=== PATIENT | female | born 1995 | race African-American/Black ===

== ENCOUNTER 2017-05-09 19:10 | Emergency (ER) | payer SELFPAY ==
[2017-05-09 19:19] VITALS: BP 126/67; PULSE 71; TEMP 98.3; BMI 40.3
[2017-05-09] MEDS ORDERED: AZITHROMYCIN 250 MG TABLET PO ONE (20:39)
[2017-05-09] MEDS ORDERED: IBUPROFEN 600 MG TABLET (FP) PO ONE ×2 (20:41→20:45)
--- NOTE | 2017-05-09 20:41 | PDOC ---
History of Present Illness - General History Source: Patient Exam Limitations: No Limitations - History of Present Illness Initial Comments: 05/09/17 20:41 The patient is a 21 year old female with history of asthma who presents to the ED complaining of one day of left ear pain that began last night. She states she woke up this morning and her outer left ear was swollen, now resolved. She also complains of pain extending to her left forehead. No headache or visual changes. No fever or chills. No urinary complaints. LMP April 10. <Manda Mcnamara - Last Filed: 05/09/17 20:41> <Nubia Mata - Last Filed: 05/09/17 20:55> - General Chief Complaint: Ear Problem Stated Complaint: EAR PROBLEM Time Seen by Provider: 05/09/17 20:21 Past History <Manda Mcnamara - Last Filed: 05/09/17 20:41> - Immunization History Immunization Up to Date: Yes - Suicide/Smoking/Psychosocial Hx Smoking History: Never smoked Have you smoked in the past 12 months: No Information on smoking cessation initiated: No Hx Alcohol Use: No Drug/Substance Use Hx: No Substance Use Type: None <Nubia Mata - Last Filed: 05/09/17 20:55> - Past Medical History Allergies/Adverse Reactions: Allergies Allergy/AdvReac Type Severity Reaction Status Date / Time shellfish derived Allergy Verified 05/09/17 19:16 Home Medications: Ambulatory Orders Albuterol Sulfate Inhaler - [Ventolin Hfa Inhaler -] 2 inh PO Q6H PRN 05/09/17 Azithromycin [Zithromax -] 250 mg PO DAILY #4 tablet 05/09/17 Review of Systems - Review of Systems Able to Perform ROS?: Yes Comments:: 05/09/17 20:44 GENERAL/CONSTITUTIONAL: No fever or chills. No weakness. HEAD, EYES, EARS, NOSE AND THROAT: +L ear pain, no discharge. +L outer ear swelling, resolved. No change in vision. No sore throat. CARDIOVASCULAR: No chest pain or shortness of breath. RESPIRATORY: No cough, wheezing, or hemoptysis. GASTROINTESTINAL: No nausea, vomiting, diarrhea or constipation. GENITOURINARY: No dysuria, frequency, or change in urination. MUSCULOSKELETAL: No joint or muscle swelling or pain. No neck or back pain. SKIN: No rash NEUROLOGIC: No headache, vertigo, loss of consciousness, or change in strength/ sensation. ENDOCRINE: No increased thirst. No abnormal weight change. HEMATOLOGIC/LYMPHATIC: No anemia, easy bleeding, or history of blood clots. ALLERGIC/IMMUNOLOGIC: No hives or skin allergy. <Manda Mcnamara - Last Filed: 05/09/17 20:41> *Physical Exam - Vital Signs Last Vital Signs Temp Pulse Resp BP Pulse Ox 98.3 F 71 18 126/67 98 05/09/17 19:15 05/09/17 19:15 05/09/17 19:15 05/09/17 19:15 05/09/17 19:15 - Physical Exam Comments: 05/09/17 20:45 GENERAL: Awake, alert, and fully oriented, in no acute distress HEAD: No signs of trauma EYES: PERRLA, EOMI, sclera anicteric, conjunctiva clear ENT: +L TM is opaque, pale, no erythema or discharge. Auricles normal inspection , hearing grossly normal, nares patent, oropharynx clear without exudates. Moist mucosa NECK: Normal ROM, supple, no lymphadenopathy, JVD, or masses EXTREMITIES: Normal range of motion, no edema. No clubbing or cyanosis. No cords, erythema. NEUROLOGICAL: Cranial nerves II through XII grossly intact. Normal speech, normal gait SKIN: Warm, Dry, normal turgor, no rashes or lesions noted. <Manda Mcnamara - Last Filed: 05/09/17 20:41> - Vital Signs Last Vital Signs Temp Pulse Resp BP Pulse Ox 98.3 F 71 18 126/67 98 05/09/17 19:15 05/09/17 19:15 05/09/17 19:15 05/09/17 19:15 05/09/17 19:15 <Nubia Mata - Last Filed: 05/09/17 20:55> Medical Decision Making - Medical Decision Making 05/09/17 20:55 Pt comes with left ear pain. She has an OM on exam. She will be treated with zpak. Follow with PMD. <Nubia Mata - Last Filed: 05/09/17 20:55> *DC/Admit/Observation/Transfer - Attestations Scribe Attestion: 05/09/17 20:46 Documentation prepared by Manda Mcnamara, acting as medical technologist blood bank for Nubia Mata MD. <Manda Mcnamara - Last Filed: 05/09/17 20:41> - Discharge Dispostion Admit: No <Nubia Mata - Last Filed: 05/09/17 20:55> Diagnosis at time of Disposition: Otitis media - Discharge Dispostion Disposition: HOME Condition at time of disposition: Stable - Prescriptions Prescriptions: Azithromycin [Zithromax -] 250 mg PO DAILY #4 tablet - Referrals Referrals: Rahat Valdovinos [Primary Care Provider] - - Patient Instructions Printed Discharge Instructions: Middle Ear Infection
[2017-05-09] MEDS ORDERED: AZITHROMYCIN 250 MG TABLET ONE (20:43)
== END 2017-05-09 20:46 | disposition home or self-care (01) ==
LOC: JER 19:10 → JERFT 19:10 → JER 20:46
DX: H66.92 Otitis media, unspecified, left ear (principal)
CPT/HCPCS: 99281-25

== ENCOUNTER 2022-07-04 13:44 | Emergency (ER) | payer OTHER ==
[2022-07-04 14:03] VITALS: BP 113/54; PULSE 82; RESP 20; TEMP 98.6; BMI 41.1
== END 2022-07-04 15:32 | disposition home or self-care (01) ==
LOC: JER 13:44
DX: J02.9 Acute pharyngitis, unspecified (principal)
CPT/HCPCS: 0241U-QW; 99283-25